=== PATIENT | male | born 1985 | race Caucasian/White ===

== ENCOUNTER 2020-04-16 14:49 | Emergency (ER) | payer SELFPAY ==
[~2020-04-16] VITALS: Ht 176.5 cm; Wt 70.0 kg
[2020-04-16 15:19] VITALS: BP 139/86
--- NOTE | 2020-04-16 15:31 | NUR ---
DR BROWN AWARE OF PT WAITING TO BE EVALUATED IN THE AMBULANCE BAY
[2020-04-16] MEDS ORDERED: ALBU8.5H8 IH (15:48)
[2020-04-16] MEDS ORDERED: BENZ-16 PO (15:48)
== END 2020-04-16 16:19 | disposition home or self-care (01) ==
LOC: ER 14:50
DX: R05 Cough (principal); J02.9 Acute pharyngitis, unspecified; F17.200 Nicotine dependence, unspecified, uncomplicated
CPT/HCPCS: 99283

== ENCOUNTER 2020-08-30 11:42 | Emergency (ER) | payer OTHER ==
[~2020-08-30] VITALS: Ht 175.3 cm; Wt 65.9 kg
[~2020-08-30 11:42] MED LIST: ALBU8.5H8 IH
[2020-08-30] MEDS ORDERED: azithromycin 250mg tablet PO ONE (12:00)
[2020-08-30] MEDS ORDERED: CefTRIAXone 250MG IM Kit w/LIDOcaine IM ONE (12:00)
--- NOTE | 2020-08-30 12:30 | NUR ---
AMBULATED PT AROUND THE TENT FOR ONE MINUTE PER PHYSICIAN'S ORDERS AND THE PATIENT'S O2 SAT STAYED AT 99% AND HR WENT BETWEEN 96-108
[2020-08-30 12:33] VITALS: BP 132/86
[2020-08-30] MEDS ORDERED: ALBU6.7H9 INH (12:57)
[2020-08-30] MEDS ORDERED: ONDA4TAB6 PO (12:57)
[2020-08-30 13:14] LABS: CLARITY,URINE SLIGHTLY CLOUDY (Clear); COLOR,URINE YELLOW (Yellow); GLUCOSE, URINE NEGATIVE (Neg); KETONES,URINE 40 mg/dl (Neg); LEUKOCYTE ESTERASE ,URINE LARGE (Neg); NITRITES, URINE NEGATIVE (Neg); OCCULT BLOOD,URINE TRACE-LYSED (Neg); PROTEIN,URINE NEGATIVE (Neg); UROBILINOGEN,URINE 0.2 E.U/dL (0.2-1.0)
[2020-08-30 13:15] LABS: UA COLLECTION TYPE CLN CATCH MIDSTREAM
[2020-08-30] MEDS ORDERED: ACYC5CRE2 TP (13:19)
[2020-08-30] MEDS ORDERED: ACYC-202 PO (13:19)
[2020-08-30 13:20] LABS: RBC,URINE 0-2 /HPF (0-2); WBC,URINE 50-100 /HPF (0-4)
[2020-08-30 13:21] LABS: BACTERIA,URINE FEW /HPF (Neg); SQUAMOUS EPITHELIAL CELL,UR FEW /LPF (FEW)
== END 2020-08-30 13:37 | disposition home or self-care (01) ==
LOC: ER 11:42
DX: R43.9 Unspecified disturbances of smell and taste (principal); R06.02 Shortness of breath; F17.210 Nicotine dependence, cigarettes, uncomplicated; Z20.828 Contact with and (suspected) exposure to other viral communicable diseases; Z88.0 Allergy status to penicillin; Z79.899 Other long term (current) drug therapy
CPT/HCPCS: 36415; 81001; 87088; 87491; 87591; 87635; 96372; 99283; J0696

== ENCOUNTER 2020-09-02 18:51 | Emergency (ER) | payer OTHER ==
[~2020-09-02] VITALS: Ht 175.3 cm; Wt 68.2 kg
[~2020-09-02 18:51] MED LIST changes: +ACYC-202 PO; +ACYC5CRE2 TP; +ALBU6.7H9 INH; +ONDA4TAB6 PO
--- NOTE | 2020-09-02 19:41 | NUR ---
GRAYSON BURRIS EVALUATING PT NOW. PT HR NOW 107, BP 163/101, CONTINUES TO STATE HE CANNOT CATCH HIS BREATH AND THAT "MY LUNGS FEEL LIKE THEY ARE ON FIRE...I FEEL LIKE MY LUNGS WONT FILLUP WITH AIR". PT ALSO PUZZLED WHY HIS HR WA SO HIGH WHEN HE ARRIVED. 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 PT GIVEN 2 WARM BLANKETS.
[2020-09-02 19:43] VITALS: BP 136/101
--- NOTE | 2020-09-02 19:48 | NUR ---
GRAYSON BURRIS REVIEWED PTS CASE WITH DR. BEAR. PT SUSPECTED TO BE HAVING ANXIETY, DOES HAVE HX OF SUCH AND HAS ANTIANXIETY RX AT HOME. HE EXPLAINED THAT PT HAS NO SIGNS OF NEEDING FURTHER EMERGENT TREATMENT FOR HIS SYMPOTOMS. WAS OFFERED ATIVAN BUT HE IS DRIVING. STATES HE WILL TAKE HIS ANTIANXIETY AT HOME.
--- NOTE | 2020-09-02 19:50 | NUR ---
PT JUST WALKED OUT OF THE TENT REPORTINIG HE IS LEAVING, ASKED IF HE WANTS HIS DC PAPERWORK AND HE STATED NO AND CONTINUED TO WALK TO HIS CAR. GRAYSON BURRIS AND REGISTRATION AND BUCK PRESSER UPDATED.
== END 2020-09-02 20:04 | disposition home or self-care (01) ==
LOC: ER 18:51
DX: F41.9 Anxiety disorder, unspecified (principal); R05 Cough; Z88.0 Allergy status to penicillin; Z79.899 Other long term (current) drug therapy
CPT/HCPCS: 71045; 99283

== ENCOUNTER 2021-01-21 23:31 | Emergency (ER) | payer MEDICAID ==
[~2021-01-21] VITALS: Ht 177.8 cm; Wt 68.2 kg
[~2021-01-21 23:31] MED LIST changes: -ACYC-202 PO; -ACYC5CRE2 TP
--- NOTE | 2021-01-22 00:49 | NUR ---
second attempt to get urine sample from patient.
[2021-01-22 01:20] LABS: CLARITY,URINE CLEAR (Clear); COLOR,URINE AMBER (Yellow); GLUCOSE, URINE NEGATIVE (Neg); KETONES,URINE NEGATIVE (Neg); LEUKOCYTE ESTERASE ,URINE NEGATIVE (Neg); NITRITES, URINE NEGATIVE (Neg); OCCULT BLOOD,URINE NEGATIVE (Neg); PROTEIN,URINE NEGATIVE (Neg); UROBILINOGEN,URINE 0.2 E.U/dL (0.2-1.0)
[2021-01-22 01:21] LABS: UA COLLECTION TYPE URINAL
[2021-01-22] MEDS ORDERED: CefTRIAXone 1000mg IM Kit (w/lidocaine diluent) IM STA (02:47)
[2021-01-22] MEDS ORDERED: azithromycin 250mg tablet PO ONE (02:50)
[2021-01-22 03:10] VITALS: BP 124/95
== END 2021-01-22 03:12 | disposition home or self-care (01) ==
LOC: ER 23:33
DX: N50.812 Left testicular pain (principal); Z11.3 Encounter for screening for infections with a predominantly sexual mode of transmission; Z88.0 Allergy status to penicillin; Z79.899 Other long term (current) drug therapy
CPT/HCPCS: 36415; 76870; 81003; 87491; 87591; 93976; 96372; 99284; J0696

== ENCOUNTER 2021-03-30 00:20 | Emergency (ER) | payer MEDICAID ==
[~2021-03-30] VITALS: Ht 177.8 cm; Wt 63.6 kg
[2021-03-30 00:28] VITALS: BP 144/85
[2021-03-30] MEDS ORDERED: CefTRIAXone 250MG IM Kit w/LIDOcaine IM ONE (01:15)
[2021-03-30] MEDS ORDERED: azithromycin 250mg tablet PO ONE (01:15)
[2021-03-30] MEDS ORDERED: metroNIDAZOLE 500mg tablet PO ONE (01:15)
== END 2021-03-30 02:18 | disposition home or self-care (01) ==
LOC: ER 00:21
DX: N50.82 Scrotal pain (principal); N43.3 Hydrocele, unspecified; L72.9 Follicular cyst of the skin and subcutaneous tissue, unspecified; Z88.0 Allergy status to penicillin; Z79.899 Other long term (current) drug therapy
CPT/HCPCS: 76870; 93976; 96372; 99284; J0696; J3490

== ENCOUNTER 2021-08-18 13:58 | Emergency (ER) | payer MEDICAID ==
[~2021-08-18] VITALS: Ht 177.8 cm; Wt 150.0 kg
[~2021-08-18 13:58] MED LIST changes: +ALBU8.5H17 IH; -ALBU8.5H8 IH
[2021-08-18 14:06] VITALS: BP 126/85
== END 2021-08-18 15:57 | disposition home or self-care (01) ==
LOC: ER 13:58
DX: B34.9 Viral infection, unspecified (principal); Z20.822 Contact with and (suspected) exposure to COVID-19; J02.9 Acute pharyngitis, unspecified; R05.9 Cough, unspecified; Z88.0 Allergy status to penicillin; Z79.899 Other long term (current) drug therapy
CPT/HCPCS: 87635; 99283; C9803

== ENCOUNTER 2021-08-22 09:09 | Emergency (ER) | payer MEDICAID ==
[~2021-08-22] VITALS: Ht 177.8 cm; Wt 68.2 kg
[2021-08-22] MEDS ORDERED: LIDOcaine 1% 30ml preserv. free vial IJ ONE (10:45)
[2021-08-22] MEDS ORDERED: fentaNYL/PF 50MCG/1 ML 2ML syringe IV ONE ×2 (10:45→12:10)
[2021-08-22 12:49] LABS: BASOPHILS % (AUTO) 0.5 % (0-1); EOSINOPHILS # (AUTO) 0.1 X10'3 (0-0.9); EOSINOPHILS % (AUTO) 1.6 % (0-6); HEMATOCRIT 41.3 % (42.0-52.0); HEMOGLOBIN 13.8 g/dl (14.0-17.9); LYMPHOCYTES # (AUTO) 1.7 X10'3 (1.1-4.8); MEAN CORPUSCULAR HGB CONC 33.4 g/dL (33.0-36.5); MEAN CORPUSCULAR VOLUME 89.8 FL (78-98); MEAN PLATELET VOLUME 7.1 FL (7.4-10.4); MONOCYTES # (AUTO) 0.7 X10'3 (0-0.9); MONOCYTES % (AUTO) 9.6 % (2-12); NEUTROPHILS # (AUTO) 4.3 X10'3 (1.8-7.7); NEUTROPHILS % (AUTO) 63.3 % (42-75); PLATELET COUNT 223 X10'3 (140-440); RED CELL DISTRIBUTION WIDTH 14.3 % (11.5-14.5); WHITE BLOOD COUNT 6.8 X10'3 (4.5-11.0)
[2021-08-22 12:54] LABS: ALBUMIN 3.5 G/DL (3.4-5.0); ANION GAP 8 (8-16); BLOOD UREA NITROGEN 15 MG/DL (7-18); BUN/CREATININE RATIO 23.4 (5.4-32.0); CALCIUM 8.4 MG/DL (8.5-10.1); CHLORIDE 107 MMOL/L (99-107); CREATININE 0.64 MG/DL (0.60-1.10); GLUCOSE 93 MG/DL (70-104); POTASSIUM 4.3 MMOL/L (3.5-5.1); SODIUM 145 MMOL/L (135-145); TOTAL CARBON DIOXIDE 29.8 MMOL/L (24-32); eGFR > 90 ML/MIN
[2021-08-22] MEDS ORDERED: oxyCODONE/APAP 5-325mg tablet PO ONE (13:25)
[2021-08-22] MEDS ORDERED: OXYC-145 PO (13:44)
[2021-08-22] MEDS ORDERED: morphine 10mg/ml inj. IV ONE (14:20)
[2021-08-22 18:01] VITALS: BP 117/85
[2021-08-23] MEDS ORDERED: OXYC-145 PO (18:40)
== END 2021-08-22 18:20 | disposition home or self-care (01) ==
LOC: ER 09:10
DX: J93.9 Pneumothorax, unspecified (principal); K76.9 Liver disease, unspecified; Z88.0 Allergy status to penicillin; Z79.899 Other long term (current) drug therapy; Z86.19 Personal history of other infectious and parasitic diseases
CPT/HCPCS: 36415; 71045; 71046; 71250; 80048; 85025; 93005; 96374; 96375; 96376; 99285; J2001; J2270; J3010; 99284

== ENCOUNTER 2021-08-23 18:08 | Emergency (ER) | payer MEDICAID ==
[~2021-08-23] VITALS: Ht 177.8 cm; Wt 68.2 kg
[~2021-08-23 18:08] MED LIST changes: +OXYC-145 PO
[2021-08-23 18:14] VITALS: BP 131/88
[2021-08-23] MEDS ORDERED: OXYC-145 PO (18:40)
== END 2021-08-23 19:03 | disposition home or self-care (01) ==
LOC: ER 18:08
DX: J93.83 Other pneumothorax (principal); Z46.82 Encounter for fitting and adjustment of non-vascular catheter; Z88.0 Allergy status to penicillin
CPT/HCPCS: 71046; 99283

== ENCOUNTER 2021-08-26 06:45 | Emergency (ER) | payer MEDICAID ==
[~2021-08-26] VITALS: Ht 177.8 cm; Wt 68.2 kg
--- NOTE | 2021-08-26 07:12 | NUR ---
significant other at bedside.
--- NOTE | 2021-08-26 07:30 | NUR ---
thoravent taken out ,guaze and taped in place,no drainage to the dressing site ,pt denies any sob ,any sharp pain or any concern.vitals stable spo2 with wnl 98-100% on ra ,significant other at bedside.
[2021-08-26 07:54] VITALS: BP 100/125
--- NOTE | 2021-08-26 07:55 | NUR ---
notified dr nash regarding pt condition,no sob or distress noted,rr wnl ,chest wall equal rise and fall . okayed to d/c the patient.
== END 2021-08-26 08:00 | disposition home or self-care (01) ==
LOC: ER 06:45
DX: J93.83 Other pneumothorax (principal); Z88.0 Allergy status to penicillin; Z79.899 Other long term (current) drug therapy
CPT/HCPCS: 71045; 99283

== ENCOUNTER 2021-10-09 21:07 | Emergency (ER) | payer MEDICAID, OTHER ==
[~2021-10-09] VITALS: Ht 185.4 cm; Wt 84.1 kg
[2021-10-09] MEDS ORDERED: ketorolac trometh. 30mg/ml inj. IM ONE (22:10)
[2021-10-09] MEDS ORDERED: HYDROcodone/acetaminophen 5mg/325mg tablet PO ONE (22:10)
[2021-10-09] MEDS ORDERED: IBUP-1984 PO (23:27)
[2021-10-09 23:35] VITALS: BP 117/80
== END 2021-10-09 23:58 | disposition home or self-care (01) ==
LOC: ER 21:08
DX: N50.812 Left testicular pain (principal); Z88.0 Allergy status to penicillin; Z79.899 Other long term (current) drug therapy
CPT/HCPCS: 76870; 93976; 96372; 99284; J1885

== ENCOUNTER 2021-12-26 11:26 | Emergency (ER) | payer MEDICAID, OTHER ==
[~2021-12-26] VITALS: Ht 177.8 cm; Wt 68.2 kg
[2021-12-26 11:28] VITALS: BP 130/86
[2021-12-26] MEDS ORDERED: oxyCODONE/APAP 10/325mg tablet PO ONE (11:35)
[2021-12-26] MEDS ORDERED: OXYC-150 PO (12:38)
== END 2021-12-26 13:21 | disposition home or self-care (01) ==
LOC: ER 11:27
DX: S52.592A Other fractures of lower end of left radius, initial encounter for closed fracture (principal); F32.9 Major depressive disorder, single episode, unspecified; Z88.0 Allergy status to penicillin; Z79.899 Other long term (current) drug therapy; F41.9 Anxiety disorder, unspecified; V49.9XXA Car occupant (driver) (passenger) injured in unspecified traffic accident, initial encounter; Y93.89 Activity, other specified; Y92.89 Other specified places as the place of occurrence of the external cause; Y99.8 Other external cause status
CPT/HCPCS: 25605; 29125; 73110; 99283; 99284

== ENCOUNTER 2022-02-22 23:05 | Emergency (ER) | payer MEDICAID ==
[~2022-02-22] VITALS: Ht 177.8 cm; Wt 72.7 kg
[~2022-02-22 23:05] MED LIST changes: +OXYC-150 PO
[2022-02-22 23:09] VITALS: BP 104/57
== END 2022-02-23 02:25 | disposition left against medical advice (07) ==
LOC: ER 23:06
DX: H57.12 Ocular pain, left eye (principal); Z53.21 Procedure and treatment not carried out due to patient leaving prior to being seen by health care provider

== ENCOUNTER 2022-02-26 22:04 | Emergency (ER) | payer MEDICAID ==
[~2022-02-26] VITALS: Ht 177.8 cm; Wt 70.5 kg
[2022-02-26 22:30] VITALS: BP 116/77
[2022-02-27] MEDS ORDERED: clindamycin 150mg capsule PO ONE (02:35)
[2022-02-27] MEDS ORDERED: CLIN-143 PO (02:36)
[2022-02-27] MEDS ORDERED: HYDR-3965 PO (02:41)
[2022-02-27] MEDS ORDERED: CLIN300C54 PO (02:42)
== END 2022-02-27 02:49 | disposition home or self-care (01) ==
LOC: ER 22:05
DX: S02.32XA Fracture of orbital floor, left side, initial encounter for closed fracture (principal); V03.99XA Pedestrian with other conveyance injured in collision with car, pick-up truck or van, unspecified whether traffic or nontraffic accident, initial encounter; Y93.89 Activity, other specified; Y92.89 Other specified places as the place of occurrence of the external cause; Y99.8 Other external cause status
CPT/HCPCS: 70450; 70486; 72125; 99284

== ENCOUNTER 2022-08-07 12:57 | Emergency (ER) | payer MEDICAID ==
[~2022-08-07] VITALS: Ht 177.8 cm; Wt 67.5 kg
[~2022-08-07 12:57] MED LIST changes: +ALBU6.7H14 INH; -ALBU6.7H9 INH
[2022-08-07] MEDS ORDERED: HYDROcodone/acetaminophen 5mg/325mg tablet PO ONE (14:45)
[2022-08-07] MEDS ORDERED: NAPR-56 PO (16:17)
[2022-08-07] MEDS ORDERED: HYDR-3965 PO (16:17)
[2022-08-07 16:58] VITALS: BP 127/79
== END 2022-08-07 17:03 | disposition home or self-care (01) ==
LOC: ER 12:57
DX: S43.52XA Sprain of left acromioclavicular joint, initial encounter (principal); S63.501A Unspecified sprain of right wrist, initial encounter; Z88.0 Allergy status to penicillin; W01.0XXA Fall on same level from slipping, tripping and stumbling without subsequent striking against object, initial encounter; Y93.89 Activity, other specified; Y92.89 Other specified places as the place of occurrence of the external cause; Y99.8 Other external cause status
CPT/HCPCS: 29125; 73030; 73110; 99284; L3908

== ENCOUNTER 2023-11-09 20:01 | Emergency (ER) | payer MEDICAID ==
[~2023-11-09] VITALS: Ht 177.8 cm; Wt 68.2 kg
[2023-11-09 20:07] VITALS: BP 145/95; PULSE 83; RESP 20; TEMP 98; O2SAT 100
== END 2023-11-09 20:59 | disposition home or self-care (01) ==
LOC: ER 20:02
DX: R07.89 Other chest pain (principal); F41.9 Anxiety disorder, unspecified; F32.A Depression, unspecified; Z88.0 Allergy status to penicillin; Z79.899 Other long term (current) drug therapy
CPT/HCPCS: 71045; 99283